=== PATIENT | male | born 1990 | race Caucasian/White ===

== ENCOUNTER 2017-09-03 17:41 | Emergency (ER) | payer OTHER ==
[2017-09-03] MEDS ORDERED: PROMETHAZINE HYDROCHLORIDE 25 MG/ML SOL IV ONE ×2 (18:01→18:14)
[2017-09-03] MEDS ORDERED: PROMETHAZINE HYDROCHLORIDE 25 MG/ML SOL ONE (18:15)
[2017-09-03] MEDS ORDERED: SODIUM CHLORIDE 0.9% 1000 ML SOL IV SCH ×2 (18:15→20:45)
[2017-09-03 18:18] LABS: BASOPHILS % (AUTO) 1 % (0-3); EOSINOPHILS % (AUTO) 0 % (0-9); HEMATOCRIT 45 % (39-53); HEMOGLOBIN 16.7 gm/dl (13.5-17.7); LYMPHOCYTES % (AUTO) 7.52 % (10-50); MEAN CORPUSCULAR HEMOGLOBIN 31.6 pg (27.0-32.0); MEAN CORPUSCULAR HGB CONC 36.8 gm/dl (32.0-36.0); MEAN CORPUSCULAR VOLUME 86 fL (80-100); MONOCYTES % (AUTO) 9.2 % (0-12); NEUTROPHILS % (AUTO) 82.2 % (37-80)
[2017-09-03 18:27] LABS: CALCIUM 9.2 mg/dl (8.5-10.1); CARBON DIOXIDE 27.2 mEq/L (21-32); CREATININE 1.03 mg/dl (0.80-1.30); POTASSIUM 3.6 mMol/L (3.5-5.1)
[2017-09-03] MEDS ORDERED: SODIUM CHLORIDE 0.9% FLUSH 10 ML SOL IV PRN (18:43)
[2017-09-03] MEDS ORDERED: METOCLOPRAMIDE HYDROCHLORIDE 5 MG/ML SOL IV ONE (19:04)
[2017-09-03 19:11] VITALS: RESP 18
[2017-09-03] MEDS ORDERED: METOCLOPRAMIDE HYDROCHLORIDE 5 MG/ML SOL ONE (19:13)
[2017-09-03] MEDS ORDERED: MAGNESIUM HYDROXIDE 30 ML SUS PO PRN ×2 (19:13→19:14)
[2017-09-03] MEDS ORDERED: SIMETHICONE 40 MG/0.6 ML SUS PO SCH (19:15)
[2017-09-03] MEDS ORDERED: MAGNESIUM HYDROXIDE 30 ML SUS ONE (19:23)
[2017-09-03] MEDS ORDERED: ONDANSETRON HCL 4 MG TAB PO PRN (20:02)
[2017-09-03] MEDS ORDERED: ONDANSETRON 4 MG ODT ONE (20:04)
[2017-09-03] MEDS ORDERED: BISACODYL 10 MG SUP PR PRN (20:43)
[2017-09-03 20:56] LABS: APPEARANCE,URINE Clear; BILIRUBIN,URINE 1+ (NEGATIVE); COLOR,URINE Dark yellow; GLUCOSE, URINE (UA) NEGATIVE (NEGATIVE); KETONES,URINE 2+ (NEGATIVE); LEUKOCYTE ESTERASE ,URINE NEGATIVE (NEGATIVE); NITRATE,URINE NEGATIVE (NEGATIVE); OCCULT BLOOD,URINE NEGATIVE (NEG-TRACE); PH,URINE 5.5; UROBILINOGEN,URINE 0.2 (0.2-1.0 EU)
[2017-09-03] MEDS ORDERED: BISACODYL 10 MG SUP PR ONE (21:03)
[2017-09-03 21:07] LABS: CRYSTALS NEGATIVE (0-3 AVE/HPF); EPITHELIAL CELLS 0-2 (SQUAMOUS); ICTOTEST,URINE NEGATIVE (NEGATIVE); RBC,URINE 0-2 (0-3AV/HPF); WBC,URINE 0-2 (0-5AV/HPF)
[2017-09-03 21:08] LABS: BACTERIA 1+ (< 1+)
[2017-09-03] MEDS ORDERED: ACETAMINOPHEN 500 MG 500 MG TAB PO ONE (22:08)
[2017-09-03] MEDS ORDERED: ACETAMINOPHEN 500 MG 500 MG TAB ONE (22:09)
[2017-09-03 23:48] VITALS: PULSE 80
[2017-09-03 23:50] VITALS: BP 146/68; TEMP 98.2; O2SAT 94
== END 2017-09-03 23:30 | disposition home or self-care (01) | DRG 392 ==
LOC: ED 17:41
DX: R11.2 Nausea with vomiting, unspecified (principal); R10.84 Generalized abdominal pain; K59.00 Constipation, unspecified
CPT/HCPCS: 74019; 80048; 81001; 85025; 96365; 96366; 96374; 96375; 99284; 99285; J2550; J2765; A9270-GY

== ENCOUNTER 2017-09-04 00:14 | Inpatient (IN) | payer OTHER ==
[2017-09-04 00:23] VITALS: RESP 18
[2017-09-04] MEDS ORDERED: PROCHLORPERAZINE EDISYLATE 5 MG/ML SOL IV ONE (01:24)
[2017-09-04] MEDS ORDERED: PROCHLORPERAZINE EDISYLATE 5 MG/ML SOL ONE (01:27)
[2017-09-04] MEDS ORDERED: SODIUM CHLORIDE 0.9% 1000 ML SOL IV SCH ×2 (01:30→02:15)
[2017-09-04 01:36] LABS: BASOPHILS % (AUTO) 1 % (0-3); EOSINOPHILS % (AUTO) 0 % (0-9); HEMATOCRIT 44 % (39-53); HEMOGLOBIN 16.1 gm/dl (13.5-17.7); LYMPHOCYTES % (AUTO) 11.3 % (10-50); MEAN CORPUSCULAR HEMOGLOBIN 31.7 pg (27.0-32.0); MEAN CORPUSCULAR HGB CONC 36.5 gm/dl (32.0-36.0); MEAN CORPUSCULAR VOLUME 87 fL (80-100); MONOCYTES % (AUTO) 9.6 % (0-12); NEUTROPHILS % (AUTO) 77.8 % (37-80)
[2017-09-04 01:46] LABS: CALCIUM 8.9 mg/dl (8.5-10.1); CARBON DIOXIDE 25.2 mEq/L (21-32); CREATININE 1.02 mg/dl (0.80-1.30); POTASSIUM 3.6 mMol/L (3.5-5.1)
[2017-09-04] MEDS ORDERED: PROCHLORPERAZINE EDISYLATE 5 MG/ML SOL IV PRN (02:15)
[2017-09-04 02:37] VITALS: PULSE 85; O2SAT 96
[2017-09-04] MEDS: SODIUM CHLORIDE 0.9% FLUSH 10 ML SOL IV SCH ×2 (02:41→08:09)
[2017-09-04] MEDS ORDERED: LORAZEPAM 2 MG/ML 10ML MDV 2 MG/ML VIAL IV ONE (02:48)
[2017-09-04] MEDS ORDERED: LORAZEPAM 2 MG/ML SOL IV ONE (02:59)
[2017-09-04 09:53] VITALS: BP 138/73; TEMP 98.5
== END 2017-09-04 13:20 | disposition home or self-care (01) | DRG 864 ==
LOC: ED 00:14 → ACUTE CARE 01:40
PROVIDERS: ADMIT Family Medicine; ATTEND Family Medicine
DX: R50.9 Fever, unspecified (principal); G43.A1 Cyclical vomiting, in migraine, intractable; R10.9 Unspecified abdominal pain; K59.00 Constipation, unspecified
CPT/HCPCS: 36415; 80048; 85025; 96374; 99222; 99238; 99283; J0780; J2060

== ENCOUNTER 2017-09-06 21:04 | Emergency (ER) | payer OTHER ==
[2017-09-06] MEDS ORDERED: ONDANSETRON HCL 4 MG/2 ML SOL IV ONE (21:14)
[2017-09-06] MEDS ORDERED: HYDROMORPHONE HCL 2 MG/ML SOL IV ONE (21:14)
[2017-09-06] MEDS ORDERED: SODIUM CHLORIDE 0.9% 1000ML 1,000 ML IV SCH (21:15)
[2017-09-06] MEDS ORDERED: ONDANSETRON HCL 4 MG/2 ML SOL ONE (21:22)
[2017-09-06] MEDS ORDERED: HYDROMORPHONE 1 MG/ML SYRINGE ONE ×4 (21:23→23:38)
[2017-09-06 21:35] LABS: BASOPHILS % (AUTO) 1 % (0-3); EOSINOPHILS % (AUTO) 2 % (0-9); HEMATOCRIT 43 % (39-53); LYMPHOCYTES % (AUTO) 33.6 % (10-50); MEAN CORPUSCULAR HEMOGLOBIN 31.7 pg (27.0-32.0); MEAN CORPUSCULAR HGB CONC 36.8 gm/dl (32.0-36.0); MEAN CORPUSCULAR VOLUME 86 fL (80-100); MONOCYTES % (AUTO) 10.1 % (0-12); NEUTROPHILS % (AUTO) 53.6 % (37-80)
[2017-09-06 21:41] LABS: LACTIC ACID 2.1 mMol/L (0.0-2.0)
[2017-09-06 21:50] LABS: ALBUMIN 4.2 gm/dl (3.4-5.0); BILIRUBIN,TOTAL 0.9 mg/dl (0.2-1.0); CALCIUM 9.6 mg/dl (8.5-10.1); CARBON DIOXIDE 27.8 mEq/L (21-32); CREATININE 1.22 mg/dl (0.80-1.30); POTASSIUM 3.1 mMol/L (3.5-5.1)
[2017-09-06] MEDS ORDERED: HYDROMORPHONE 1 MG/ML SYRINGE IV ONE ×3 (21:52→23:37)
[2017-09-06 21:58] LABS: INR 1.13 (0.86-1.12)
[2017-09-06] MEDS ORDERED: FENTANYL 100MCG/2ML SOL IV ONE ×2 (22:32→22:57)
[2017-09-06] MEDS ORDERED: FENTANYL 100MCG/2ML SOL ONE ×2 (22:34→22:58)
[2017-09-06] MEDS ORDERED: LEVOFLOXACIN 25 MG/ML 750 MG in SODIUM CHLORIDE 0.9% 250 ML 150 ML IV ONE (23:03)
[2017-09-06] MEDS ORDERED: LEVOFLOXACIN 25 MG/ML SOL IV ONE ×2 (23:10→23:12)
[2017-09-06 23:11] VITALS: TEMP 99.9
[2017-09-06] MEDS ORDERED: PROMETHAZINE HYDROCHLORIDE 25 MG/ML SOL IV ONE (23:25)
[2017-09-06] MEDS ORDERED: PROMETHAZINE HYDROCHLORIDE 25 MG/ML SOL ONE (23:26)
[2017-09-06] MEDS: SODIUM CHLORIDE 0.9% FLUSH 10 ML SOL IV PRN (23:43)
[2017-09-06] MEDS ORDERED: METRONIDAZOLE 500 MG (PREMIX) 500 MG/100 ML SOL IV SCH ×2 (23:45)
[2017-09-07] MEDS: SODIUM CHLORIDE 0.9% FLUSH 10 ML SOL IV PRN (00:03)
[2017-09-07 00:17] VITALS: BP 174/105; PULSE 93; RESP 18; O2SAT 98
== END 2017-09-07 00:03 | disposition short-term general hospital (02) | DRG 392 ==
LOC: ED 21:04
DX: K57.20 Diverticulitis of large intestine with perforation and abscess without bleeding (principal)
CPT/HCPCS: 36415; 74177; 80053; 85025; 85610; 87040; 96365; 96366; 96374; 96375; 99291; J1956; J2405; J2550; J3010; Q9967; J1170; J3490